=== PATIENT | female | born 1990 | race American Indian/Alaskan Native ===

== ENCOUNTER 2020-10-11 13:54 | Outpatient (CLI) | payer BC | END 2020-10-11 17:43 | disposition home or self-care (01) | LOC: LAB 13:54 → APU 16:52 → LAB 17:43 | PROVIDERS: ATTEND Obstetrics & Gynecology | DX: O26.893 Other specified pregnancy related conditions, third trimester (principal); Z67.21 Type B blood, Rh negative; Z3A.29 29 weeks gestation of pregnancy | CPT/HCPCS: 86850; 86900; 86901; 96372; J2790 ==

== ENCOUNTER 2020-12-31 06:15 | Inpatient (IN) | payer BC ==
[2020-12-31] MEDS ORDERED: fentaNYL 100 MCG/2 ML INJ IV PRN (08:30)
[2020-12-31] MEDS ORDERED: METHYLERGONOVINE MALEATE 0.2 MG/ML VIAL IM PRN (08:30)
[2020-12-31] MEDS ORDERED: ePHEDrine SULFATE 50 MG/1 ML INJ IV PRN ×2 (08:30→09:29)
[2020-12-31] MEDS ORDERED: TERBUTALINE 1 MG/1 ML INJ SUB-Q PRN (08:30)
[2020-12-31] MEDS ORDERED: BUTORPHANOL 2 MG/1 ML INJ IV PRN (08:30)
[2020-12-31] MEDS ORDERED: LIDOCAINE (2%) 20 MG/1 ML VIAL 20 ML MDV INFILTRATI ONE (08:30)
[2020-12-31] MEDS ORDERED: CARBOPROST TROMETHAMINE 250 MCG/1 ML INJ IM PRN (08:30)
[2020-12-31] MEDS ORDERED: LOPERAMIDE 2 MG CAP PO PRN (08:30)
[2020-12-31] MEDS ORDERED: AMPICILLIN/NS 2 GM/100 ML 2 GM/100 ML BAG IV ONE (08:30)
[2020-12-31] MEDS ORDERED: ACETAMINOPHEN 325 MG TAB PO PRN (08:30)
[2020-12-31] MEDS ORDERED: OXYTOCIN 10 UNIT/1 ML INJ IM PRN (08:30)
[2020-12-31] MEDS ORDERED: miSOPROStol 200 MCG TAB PR PRN (08:30)
--- NOTE | 2020-12-31 08:40 | History and Physical Report ---
History of Present Illness Date of examination: 12/31/20 Date of admission: 12/31/20 Chief complaint: Leaking of water History of present illness: 30 year old presents to L&D with contractions and leaking of water. Patient denies vaginal bleeding. Patient reports active movement. Patient received care at [facility] and partial records are available. EDC 01/02/2021. significant for the following: obesity, Rh negative, coronavirus during first trimester of , anti-M antibody, size greater than dates. labs are as follows: B negative, antibody screen positive (anti-M), rubella immune, varicella immune, hepatitis B surface antigen negative, hepatitis C antibody nonreactive, RPR nonreactive, HIV negative, chlamydia negative, gonorrhea negative, trichomonas negative, 1 hour sugar test 121, hemloglobin electrophoresis normal, pap smear negative, GBS unknown (no results on chart). Past History Past Medical History: other (obesity) Past Surgical History: no surgical history [facility] History: denies: abnormal PAP smear, chlamydia, gonorrhea, hepatitis B, hepatitis C, herpes, HIV, syphilis, trichomonas Family/Genetic History: cancer Social history: lives with family, full code. denies: smoking, alcohol abuse, prescription drug abuse, IV drug use - Obstetrical History Expected Date of Delivery: 01/02/21 Actual Gestation: 39 Week(s) 5 Day(s) : 2 Para: 1 Hx # Term Pregnancies: 1 Number of Pregnancies: 0 Spontaneous Abortions: 0 Induced : 0 Number of Living Children: 1 Medications and Allergies Allergies Allergy/AdvReac Type Severity Reaction Status Date / Time No Known Allergies Allergy Verified 12/31/20 08:23 Home Medications Medication Instructions Recorded Confirmed Last Taken Type Vit No.129/Iron/Folic 1 tab PO DAILY 12/31/20 12/31/20 1 Week Ago History [ One Daily Tablet] ~12/24/20 1 tab Active Meds: Active Medications Acetaminophen (Acetaminophen 325 Mg Tab) 650 mg PO Q4H PRN PRN Reason: Pain, Mild (1-3) Butorphanol Tartrate (Butorphanol 2 Mg/1 Ml Inj) 1 mg IV Q2H PRN PRN Reason: Pain, Moderate(4-6) LABOR PAIN Carboprost Tromethamine (Carboprost Tromethamine 250 Mcg/1 Ml Inj) 250 mcg IM ONCE PRN PRN Reason: Uterine Bleeding Ephedrine Sulfate (Ephedrine Sulfate 50 Mg/1 Ml Inj) 10 mg IV Q2M PRN PRN Reason: Hypotension Fentanyl (Fentanyl 100 Mcg/2 Ml Inj) 100 mcg IV Q2H PRN PRN Reason: Pain,Severe (7-10) LABOR PAIN Oxytocin/Sodium Chloride (Pitocin/Ns 30 Unit/500ml) 30 units in 500 mls @ 2 mls/hr IV TITR ISABEL; Protocol Lactated Ringer's (Lactated Ringers) 1,000 mls @ 125 mls/hr IV DIRECT ISABEL Oxytocin/Sodium Chloride (Pitocin/Ns 30 Unit/500ml) 30 units in 500 mls @ 40 mls/hr IV TITR ISABEL; Protocol Ampicillin Sodium (Ampicillin/Ns 2 Gm/100 Ml) 2 gm in 100 mls @ 100 mls/hr IV ONCE ONE; Protocol Stop: 12/31/20 09:29 Ampicillin Sodium (Ampicillin/Ns 1 Gm/50 Ml) 1 gm in 50 mls @ 100 mls/hr IV Q4H ISABEL; Protocol Loperamide HCl (Loperamide 2 Mg Cap) 2 mg PO ONCE PRN PRN Reason: give with Hemabate Methylergonovine Maleate (Methylergonovine Maleate 0.2 Mg/Ml Vial) 0.2 mg IM ONCE PRN PRN Reason: Uterine Bleeding Mineral Oil (Mineral Oil 30 Ml Oral Liqd) 30 ml PO QHS PRN PRN Reason: Constipation Misoprostol (Misoprostol 200 Mcg Tab) 800 mcg IA ONCE PRN PRN Reason: Uterine Bleeding Oxytocin (Oxytocin 10 Unit/1 Ml Inj) 10 unit IM ONCE PRN PRN Reason: Uterine Bleeding Terbutaline Sulfate (Terbutaline 1 Mg/1 Ml Inj) 0.25 mg SUB-Q ONCE PRN PRN Reason: Hyperstimulation/Hypertonicity Review of Systems All systems: negative (contractions and leaking of water) - Vital Signs Vital signs: Vital Signs Pulse BP Pulse Ox 78 145/72 97 12/31/20 06:43 12/31/20 06:43 12/31/20 06:43 Temp Pulse Resp BP Pulse Ox 98.6 F 95 H 18 150/66 97 12/31/20 08:25 12/31/20 08:34 12/31/20 06:44 12/31/20 08:20 12/31/20 08:34 US shows EFW 3306 grams. - Physical Exam Abdomen: Positive: normal appearance, soft. Negative: distention, tenderness, guarding, rigidity Genitourinary (Female): Positive: normal external genitalia, normal perenium. Negative: perineal/vulvar lesions Vagina: Positive: other (clear fluid seen leaking from vagina) Uterus: Positive: enlarged (S=D). Negative: tender Anus/Rectum: Positive: normal perianal skin Extremities: Positive: normal - Obstetrical FHR: category 1 Uterine Contraction Monitor Mode: External Cervical Dilatation: 3 Cervical Effacement Percentage: 80 station: -3 Uterine Contraction Pattern: Regular Uterine Contraction Intensity: Moderate Results Result Diagrams: 12/31/20 08:34 12/31/20 08:34 Abnormal lab results 12/31/20 Range/Units 07:10 Membranes Rupture Positive A (Negative) All other labs normal. Assessment and Plan A: at 39 weeks, 5 days gestation. SROM. Labor. GBS unknown. P: Admit. EFM. GBS prophylaxis. Epidural if desired. Anticipate vaginal .
[2020-12-31] MEDS: LACTATED RINGERS 1,000 ML IV SCH ×3 (08:50→11:37)
[2020-12-31] MEDS ORDERED: OXYTOCIN DRIP 30 UNITS/500 ML BAG IV SCH (09:00)
[2020-12-31 09:06] LABS: Hematocrit 33.1 % (30.3-42.9); Hemoglobin 11.3 gm/dl (10.1-14.3); Mean Corpuscular HGB Conc 34 % (30-34); Mean Corpuscular Volume 85 fl (79-97); Platelet Count 215 K/mm3 (140-440); Red Blood Count 3.89 M/mm3 (3.65-5.03); Red Cell Distribution Width 13.7 % (13.2-15.2)
[2020-12-31] MEDS ORDERED: NALOXONE 2 MG/2 ML INJ IV PRN (09:29)
--- NOTE | 2020-12-31 09:32 | Anesthesia Consultation ---
Anesthesia Consult and Med Hx Date of service: 12/31/20 - Airway Anesthetic Teeth Evaluation: Good ROM Head & Neck: Adequate Mental/Hyoid Distance: Adequate Mallampati Class: Class II Intubation Access Assessment: Good - Pulmonary Exam CTA: Yes - Cardiac Exam Cardiac Exam: RRR - Pre-Operative Health Status ASA Pre-Surgery Classification: ASA2 Proposed Anesthetic Plan: Epidural - Pulmonary Hx Smoking: Yes (quit 2019) Hx Asthma: No Hx Respiratory Symptoms: No SOB: No COPD: No Home Oxygen Therapy: No Hx Pneumonia: No Hx Sleep Apnea: No - Cardiovascular System Hx Hypertension: No Hx Coronary Artery Disease: No Hx Heart Attack/AMI: No Hx Angina: No Hx Percutaneous Transluminal Coronary Angioplasty (PTCA): No Hx Cardia Arrhythmia: No Hx Pacemaker: No Hx Internal Defibrillator: No Hx Valvular Heart Disease: No Hx Heart Murmur: No Hx Peripheral Vascular Disease: No - Central Nervous System Hx Neuromuscular Disorder: No Hx Seizures: No CVA: No Hx Back Pain: No Hx Psychiatric Problems: No - Gastrointestinal Hx Ulcer: No Hx Gastroesophageal Reflux Disease: Yes - Endocrine Hx Renal Disease: No Hx End Stage Renal Disease: No Hx Cirrhosis: No Hx Liver Disease: No Hx Insulin Dependent Diabetes: No Hx Non-Insulin Dependent Diabetes: No Hx Thyroid Disease: No Hx Hypothyroidism: No Hx Hyperthyroidism: No - Hematic Hx Anemia: No Hx Sickle Cell Disease: No - Other Systems Hx Alcohol Use: Yes Hx Substance Use: No Hx Cancer: No Hx Obesity: No
[2020-12-31 09:39] LABS: Alanine Aminotransferase 8 units/L (7-56); Albumin 3.7 g/dL (3.9-5); Blood Urea Nitrogen 5 mg/dL (7-17); Calcium 9.5 mg/dL (8.4-10.2); Hemolysis Index 8; Uric Acid 3.5 mg/dL (3.5-7.6)
[2020-12-31 09:40] LABS: BUN/Creatinine Ratio 10
[2020-12-31] MEDS ORDERED: fentaNYL-BUPIV 2 MCG/ML-0.125% 200 MCG/100 ML BAG EPIDURAL SCH (10:00)
--- NOTE | 2020-12-31 10:07 | Ultrasound Report ---
Limited obstetrical ultrasound INDICATION: well-being, term , dating, weight, placental location COMPARISON: None FINDINGS: Term intrauterine is seen in a cephalic position. Cardiac activity was documented with heart rate of 142 bpm. Full survey was not performed. Placenta is fundal and posterior an d free of the internal cervical os. Estimated gestational age is 38 weeks 1 day. Estimated weig ht is 3306 g +/- 489 g in the 28th percentile. Signer Name: Surya Fink MD Signed: 12/31/2020 10:03 AM Workstation Name: [id number]
--- NOTE | 2020-12-31 10:21 | Progress Note ---
Labor Epidural - Labor Epidural Start Time: 09:49 Stop Time: 10:08 Performed by:: ELIS FARR Procedure: Patient is requesting a laboring epidural for laboring pain. Patient IDed, H&P reviewed, all questions and concerns were answered, and consent was signed. Timeout was performed at bedside. Patient in sitting position. Sterile prep and drape was performed. [3] ml of 1% lidocaine skin wheal at L[3]- L [4]. 18- gauge Evin epidural needle was advanced to loss of resistance with saline technique 6cm. Negative CSF negative blood. Epidural catheter advanced to [10] centimeters. [NEGATIVE] Aspiration [NEGATIVE] test dose. Sterile dressing applied. Patient tolerated procedure.
[2020-12-31] MEDS: OXYTOCIN DRIP 30 UNITS/500 ML BAG IV SCH ×2 (10:56→14:38)
[2020-12-31] MEDS ORDERED: AMPICILLIN/NS 1 GM/50 ML 1 GM/50 ML BAG IV SCH (13:00)
[2020-12-31 13:06] LABS: Hepatitis C Virus Antibody Non-Reactive (NonReactive)
--- NOTE | 2020-12-31 15:40 | Event Note ---
Date: 12/31/20 SVE /.
--- NOTE | 2020-12-31 17:23 | Procedure Note ---
OB Delivery Note - Delivery Date of Delivery: 12/31/20 Surgeon: JAKOB FRANKS Estimated blood loss: other (150 cc) - Vaginal Delivery presentation: vertex Delivery position: OA Intrapartum events: none Delivery induction: none Delivery augmentation: pitocin Delivery monitor: external FHT, external uterine Route of delivery: Delivery placenta: spontaneous Delivery cord: 3 umbilical vessels Episiotomy: none Delivery laceration: none Anesthesia: epidural Delivery comments: Spontaneous vaginal delivery at 16:58 of liveborn female weighing 7 lb. 10 oz. over intact perineum with apgars of 9/9. Epidural anesthesia. was atraumatic; no nuchal cord. Baby placed skin to skin with mom immediately after delivery. Spontaneous cry and respirations. Baby was suctioned with bulb syringe, dried with warm blankets and stimulated. Three vessel cord double clamped and cut (delayed cord clamping). Baby taken to radiant warmer for further suctioning. Spontaneous delivery of intact placenta and membranes by mitchell mechanism at 17:01. Pitocin given at placental delivery and fundus was firm and midline. EBL 150 cc. No lacerations noted. Sponge count correct. Vaginal sweep negative. Cord blood obtained. Mother and baby stable in birthing room.
[2020-12-31] MEDS ORDERED: diphenhydrAMINE 25 MG CAP PO PRN (17:25)
[2020-12-31] MEDS ORDERED: ONDANSETRON 4 MG/2 ML INJ IV PRN (17:25)
[2020-12-31] MEDS ORDERED: WITCH HAZEL/ GLYCERIN PAD TP PRN (17:25)
[2020-12-31] MEDS ORDERED: HYDROcodone/ACETAMINOPHEN 5-325 MG TAB PO PRN (17:25)
[2020-12-31] MEDS ORDERED: MAGNESIUM HYDROXIDE (MOM) ORAL LIQD UDC PO PRN (17:25)
[2020-12-31] MEDS ORDERED: LANOLIN/ZINC/DIMETHICONE (LANSINOH) 7 GM TP PRN (17:25)
[2020-12-31] MEDS ORDERED: BENZOCAINE/MENTHOL 20/0.5% TOP SPRAY 56 GM TP PRN (17:25)
[2020-12-31] MEDS ORDERED: MINERAL OIL 30 ML ORAL LIQD PO PRN (22:00)
[2021-01-01] MEDS: IBUPROFEN 600 MG TAB PO SCH ×3 (01:58→18:19)
--- NOTE | 2021-01-01 03:27 | Post Anesthesia Evaluation ---
- Post Anesthesia Evaluation Patient Participated: Yes Airway Patent: Yes Stable Respiratory Function: Yes Nausea/Vomiting: No Temp > 96.8F: Yes Pain Manageable: Yes Adequeate Hydration: Yes Anesthesia Complications: No Block Receding Appropriately: Yes Patient on Ventilator: No
[2021-01-01 06:25] LABS: Hematocrit 30.1 % (30.3-42.9); Mean Corpuscular HGB Conc 33 % (30-34); Mean Corpuscular Volume 86 fl (79-97); Platelet Count 212 K/mm3 (140-440); Red Cell Distribution Width 13.5 % (13.2-15.2)
[2021-01-01 07:12] LABS: Bilirubin,Urine NEG (Negative); Blood,Urine LG (Negative); Color,Urine Red (Yellow)
[2021-01-01 07:53] LABS: RBC,Urine < 1.0 /HPF (0.0-6.0)
[2021-01-01] MEDS: FERROUS SULFATE 325 MG TAB PO SCH (11:35)
--- NOTE | 2021-01-01 12:07 | Progress Note ---
Assessment and Plan A: S/P Asymptomatic anemia p: Continue routine pp care Rhogam w/u Fe prescribed D/C home tomm if stable Subjective - Subjective Date of service: 01/01/21 Principal diagnosis: S/P Patient reports: appetite normal, voiding normally, pain well controlled, ambulating normally [place]: doing well, bottle feeding Objective - Vital Signs Latest vital signs: Vital Signs Temp Pulse Resp BP Pulse Ox Pulse Ox 01/01/21 09:00 98 01/01/21 08:11 97.8 F 98 H 18 122/77 98 01/01/21 04:36 98.5 F 90 20 112/66 96 01/01/21 01:58 12 01/01/21 00:00 99.2 F 108 H 20 129/62 99 12/31/20 23:00 98 12/31/20 19:15 99 12/31/20 19:05 106 H 120/65 12/31/20 18:05 109 H 99 12/31/20 18:00 93 H 99 12/31/20 17:55 91 H 98 12/31/20 17:50 105 H 98 12/31/20 17:45 97 H 98 12/31/20 17:40 98 H 129/90 99 12/31/20 17:35 98 H 99 12/31/20 17:30 102 H 98 12/31/20 17:25 112 H 98 12/31/20 17:20 112 H 100 12/31/20 17:15 111 H 98 12/31/20 17:14 121 H 135/72 12/31/20 17:10 99.1 F 106 H 100 12/31/20 17:05 99 H 99 12/31/20 17:04 106 H 129/69 12/31/20 17:00 53 L 115/58 100 12/31/20 16:55 112 H 99 12/31/20 16:54 109 H 118/82 12/31/20 16:50 108 H 100 12/31/20 16:45 110 H 100 12/31/20 16:43 109 H 156/93 12/31/20 16:40 125 H 96 12/31/20 16:35 107 H 134/80 98 12/31/20 16:30 135 H 97 12/31/20 16:29 112 H 136/81 12/31/20 16:25 106 H 97 12/31/20 16:23 123 H 126/82 12/31/20 16:20 120 H 98 12/31/20 16:15 123 H 98 12/31/20 16:14 110 H 135/93 12/31/20 16:10 122 H 98 12/31/20 16:08 108 H 141/90 12/31/20 16:05 125 H 136/86 98 12/31/20 16:00 127 H 98 12/31/20 15:59 101 H 135/84 12/31/20 15:55 110 H 98 12/31/20 15:54 99 H 130/78 12/31/20 15:50 104 H 96 12/31/20 15:49 77 133/90 12/31/20 15:45 106 H 99 12/31/20 15:43 94 H 125/75 12/31/20 15:40 102 H 97 12/31/20 15:35 92 H 96 12/31/20 15:34 94 H 130/72 12/31/20 15:30 85 128/62 98 12/31/20 15:26 91 H 125/56 12/31/20 15:24 94 H 99 12/31/20 15:19 74 124/67 98 12/31/20 15:14 94 H 98 12/31/20 15:13 83 119/67 12/31/20 15:09 79 120/64 97 12/31/20 15:04 82 124/77 98 12/31/20 15:00 70 127/70 12/31/20 14:59 72 99 12/31/20 14:54 80 97 12/31/20 14:53 72 123/60 12/31/20 14:49 84 97 12/31/20 14:48 90 116/64 12/31/20 14:44 78 125/74 99 12/31/20 14:41 72 128/75 12/31/20 14:39 74 97 12/31/20 14:34 79 119/57 96 12/31/20 14:29 76 123/67 97 12/31/20 14:24 89 114/62 96 12/31/20 14:19 82 132/75 96 12/31/20 14:14 86 107/64 96 12/31/20 14:10 97.9 F 20 96 12/31/20 14:09 77 120/69 96 12/31/20 14:04 85 97 12/31/20 14:03 75 115/59 12/31/20 13:59 82 130/70 96 12/31/20 13:55 89 108/59 94 12/31/20 13:54 94 H 97 12/31/20 13:50 93 H 94 12/31/20 13:49 93 H 95 12/31/20 13:48 88 110/58 12/31/20 13:44 85 97 12/31/20 13:43 81 121/61 12/31/20 13:40 83 121/60 12/31/20 13:39 84 95 12/31/20 13:34 82 94 12/31/20 13:33 98 H 111/57 93 12/31/20 13:29 94 H 120/57 98 12/31/20 13:25 94 H 94 12/31/20 13:24 93 H 94 12/31/20 13:23 90 105/54 12/31/20 13:19 80 95 12/31/20 13:18 92 H 113/54 12/31/20 13:16 82 121/56 12/31/20 13:15 81 94 12/31/20 13:14 78 95 12/31/20 13:09 80 115/56 95 12/31/20 13:04 83 113/56 94 12/31/20 12:59 81 116/55 96 12/31/20 12:54 79 95 12/31/20 12:53 77 118/56 12/31/20 12:49 86 95 12/31/20 12:48 81 112/55 94 12/31/20 12:44 82 114/68 96 12/31/20 12:39 77 96 12/31/20 12:38 87 108/56 12/31/20 12:34 86 96 12/31/20 12:33 85 107/59 92 12/31/20 12:29 80 111/58 95 12/31/20 12:24 80 112/56 96 12/31/20 12:20 110/59 12/31/20 12:19 78 95 12/31/20 12:18 78 110/59 12/31/20 12:14 82 98 12/31/20 12:13 74 107/53 12/31/20 12:09 72 116/56 99 12/31/20 12:04 77 99 Intake and Output 12/31/20 01/01/21 01/01/21 22:59 06:59 14:59 Intake Total 9.2 240 Output Total 400 1300 Balance -390.8 -1060 Intake: IV 9.2 PITOCin/NS 30 UNIT/500ML 9.2 30 units In 500 ml @ 2 mls/hr IV TITR ISABEL Rx#: [id number] Oral 240 Output: Urine 400 1300 Void 400 1300 Other: Total, Intake Amount 240 Total, Output Amount 400 800 # Voids Void 1 1 Estimated Blood Loss 150 - Exam Breasts: Present: normal Abdomen: Present: normal appearance, soft, normal bowel sounds Vulva: both: normal Uterus: Present: normal, firm, fundal height below umbilicus Extremities: Present: normal - Labs Labs: Abnormal lab results 01/01/21 01/01/21 Range/Units 05:43 06:10 WBC 20.3 H (4.5-11.0) K/mm3 RBC 3.50 L (3.65-5.03) M/mm3 Hgb 10.0 L (10.1-14.3) gm/dl Hct 30.1 L (30.3-42.9) % Urine WBC (Auto) 31.0 H (0.0-6.0) /HPF
[2021-01-01 14:53] LABS: Total Cells Counted 100
[2021-01-01 14:55] LABS: Platelet Estimate Consistent w Auto; RBC Morphology Normal
[2021-01-02] MEDS: IBUPROFEN 600 MG TAB PO SCH ×2 (00:11→06:15)
[2021-01-02] MEDS: FERROUS SULFATE 325 MG TAB PO SCH (10:53)
[2021-01-02] MEDS ORDERED: cefTRIAXone/NS 1 GM/50 ML 1 GM/50 ML BAG IV SCH (11:00)
[2021-01-02 12:00] LABS: Basophils % (Auto) 0.4 % (0.0-1.8); Eosinophils # (Auto) 0.2 K/mm3 (0.0-0.4); Eosinophils % (Auto) 1.5 % (0.0-4.3); Hematocrit 30.9 % (30.3-42.9); Hemoglobin 10.3 gm/dl (10.1-14.3); Lymphocytes # (Auto) 1.9 K/mm3 (1.2-5.4); Lymphocytes % (Auto) 18.7 % (13.4-35.0); Mean Corpuscular HGB Conc 33 % (30-34); Mean Corpuscular Volume 86 fl (79-97); Monocytes # (Auto) 0.4 K/mm3 (0.0-0.8); Monocytes % (Auto) 3.8 % (0.0-7.3); Platelet Count 228 K/mm3 (140-440); Red Blood Count 3.58 M/mm3 (3.65-5.03)
[2021-01-02 12:15] LABS: Alanine Aminotransferase 18 units/L (7-56); Albumin 3.2 g/dL (3.9-5); Blood Urea Nitrogen 4 mg/dL (7-17); Calcium 9.2 mg/dL (8.4-10.2); Hemolysis Index 4
[2021-01-02 12:23] LABS: BUN/Creatinine Ratio 7
--- NOTE | 2021-01-02 15:46 | Progress Note ---
Assessment and Plan A: day 2 S/P . Anemia. P: Discharge patient home today. Discussed with patient discharge instructions and warning signs. Advised patient to take her vitamins and iron supplements at home. Advised patient to avoid intercourse, lifting, housework, driving. Advised patient to follow up at [facility] in 1 week. Patient voiced understanding of all instructions. Subjective - Subjective Date of service: 01/02/21 Principal diagnosis: day 2 S/P Interval history: Patient desires discharge home today. Urine culture negative. WBC decreased to normal. Patient reports: appetite normal, voiding normally, pain well controlled, flatus, ambulating normally, no dizzy ambulation, no nauseated [place]: doing well, bottle feeding Objective - Vital Signs Latest vital signs: Vital Signs Temp Pulse Resp BP Pulse Ox Pulse Ox 01/02/21 08:40 98 01/02/21 08:10 98.3 F 65 20 126/71 98 01/01/21 23:49 98.3 F 71 20 113/72 99 01/01/21 20:57 98 Intake and Output 01/01/21 01/02/21 01/02/21 23:59 07:59 15:59 Intake Total 480 120 360 Balance 480 120 360 Intake: Oral 480 120 360 Other: Total, Intake Amount 240 120 240 # Voids Void 1 1 1 - Exam Narrative Exam: No CVAT. Cardiovascular: Present: Regular rate Lungs: Present: Clear to auscultation Abdomen: Present: normal appearance, soft, normal bowel sounds. Absent: distention, tenderness, guarding, rigidity Uterus: Present: normal, firm, other (FH at 2 FB below umbilicus). Absent: bogginess, tenderness Extremities: Present: normal. Absent: tenderness, edema - Labs Labs: Abnormal lab results 01/02/21 01/02/21 Range/Units 11:37 11:37 RBC 3.58 L (3.65-5.03) M/mm3 Seg Neutrophils % 75.6 H (40.0-70.0) % Seg Neutrophils # 7.8 H (1.8-7.7) K/mm3 Sodium 136 L (137-145) mmol/L BUN 4 L (7-17) mg/dL Total Protein 6.2 L (6.3-8.2) g/dL Albumin 3.2 L (3.9-5) g/dL
--- NOTE | 2021-01-02 15:47 | Discharge Summary ---
Providers - Providers Date of Admission: 12/31/20 06:17 Date of discharge: 01/02/21 Attending physician: MARY METZGER Primary care physician: MARY METZGER Hospitalization Reason for admission: active labor Delivery: Episiotomy: none Laceration: none Other procedures: none complications: none Discharge diagnosis: IUP at term delivered [place] baby: female Condition at discharge: Good Disposition: 01 HOME / SELF CARE / HOMELESS - Discharge Diagnoses (1) Term delivered Status: Acute (2) Anemia Status: Acute Plan - Provider Discharge Summary Activity: routine, no sex for 6 weeks, no heavy lifting 4 weeks, no strenuous exercise Diet: routine Instructions: routine Additional instructions: Continue taking your vitamins and iron supplements at home. Follow up at [facility] in 1 week. Call your doctor immediately for: * Fever > 100.5 * Heavy vaginal bleeding ( >1 pad per hour) * Severe persistent headache * Shortness of breath * Reddened, hot, painful area to leg or breast - Follow up plan Follow up: PRIMARY CARE, [Referring] - 7 Days
[2021-01-02 16:25] VITALS: BP 126/89
== END 2021-01-02 17:10 | disposition home or self-care (01) | DRG 807 ==
LOC: TRG 06:15 → LD 06:17 → APU 06:22 → LD 08:14 → TRG 08:30 → OB 19:53
PROVIDERS: ADMIT Obstetrics & Gynecology; ATTEND Obstetrics & Gynecology
PROC: 10E0XZZ Delivery of Products of Conception, External Approach (ICD-10-PCS; principal; 2020-12-31)
PROC: 3E0R3BZ Introduction of Anesthetic Agent into Spinal Canal, Percutaneous Approach (ICD-10-PCS; 2020-12-31)
PROC: 00HU33Z Insertion of Infusion Device into Spinal Canal, Percutaneous Approach (ICD-10-PCS; 2020-12-31)
PROC: 3E0234Z Introduction of Serum, Toxoid and Vaccine into Muscle, Percutaneous Approach (ICD-10-PCS; 2020-12-31)
DX: O99.214 Obesity complicating childbirth (principal); Z37.0 Single live birth; O99.02 Anemia complicating childbirth; Z20.822 Contact with and (suspected) exposure to COVID-19; O26.893 Other specified pregnancy related conditions, third trimester; Z3A.39 39 weeks gestation of pregnancy; Z87.891 Personal history of nicotine dependence; Z67.21 Type B blood, Rh negative; D64.9 Anemia, unspecified
CPT/HCPCS: 36415; 59025; 76805; 76816; 80053; 81001; 83036; 83615; 84112; 84550; 85007; 85025; 85027; 85461; 86592; 86706; 86762; 86803; 86850; 86900; 86901; 87086; 87806; 99211; G0378; A6250; G0463; J0290; J0696; J2590; J2790; J7120; U0003